=== PATIENT | male | born 1985 | race Caucasian/White ===

== ENCOUNTER 2016-12-13 09:31 | Day surgery (SDC) | payer BC ==
[~2016-12-13] VITALS: Ht 185.4 cm; Wt 125.4 kg
[2016-12-13] MEDS ORDERED: RANI150T9 PO (10:08)
[2016-12-13 10:13] VITALS: Ht 185.4 cm; Wt 125.4 kg
[2016-12-13] MEDS ORDERED: LIDOCAINE 2% (SDV) 5 ML INJ ONE (11:01)
[2016-12-13] MEDS ORDERED: PROPOFOL 60 ML ONE (11:01)
[2016-12-13 11:06] VITALS: BP 138/64; PULSE 61; RESP 17
[2016-12-13] MEDS ORDERED: PROPOFOL 20 ML ONE (11:14)
[2016-12-13 12:07] VITALS: BP 114/75; PULSE 67; RESP 20
--- NOTE | 2016-12-13 14:01 | GILP ---
DATE OF PROCEDURE: 12/13/2016 NAME OF PROCEDURES: 1. Esophagogastroduodenoscopy and biopsy. 2. Colonoscopy and biopsy. SURGEON: Jewell Treadwell MD PREOPERATIVE DIAGNOSES: 1. Abdominal pain. 2. Change in the bowel habit. 3. Rectal bleeding. 4. History of mucus in the stool. POSTOPERATIVE DIAGNOSES: 1. Gastritis with erosions. 2. Gastric nodules and biopsies were taken for histopathology. 3. Colonoscopy all the way to the cecum and into the terminal ileum. 4. Normal terminal ileum. 5. Internal hemorrhoids. 6. Random biopsies were taken to rule out microscopic colitis. INDICATION FOR THE PROCEDURE: Mr. Lea Gayle is a 31-year-old male patient who had upper abdo carlie pain, not responding to therapy. The patient also noticed a change in the bowel habit associa carmen with mucus in the stool. He also had a history of rectal bleeding. So the patient was schedule d for endoscopy and colonoscopy for further evaluation. The procedures and possible complications were well explained to the patient. The patient understoo d and consented to the procedures. DESCRIPTION OF PROCEDURE: Under the influence of anesthesia, the gastroscope was carefully introduc ed into the esophagus and under direct vision, it was advanced to the stomach and through the pyloru s into the duodenal bulb and descending duodenum. FINDINGS: ESOPHAGUS: Mucosa was normal. STOMACH: The patient had gastritis with erosions. The patient also had some gastric nodules near t he cardia of the stomach and biopsies were taken for histopathology. DUODENUM: Normal. The colonoscope was carefully introduced in the rectum and under direct vision, it was advanced all the way to the cecum. FINDINGS: The patient had internal hemorrhoids. No colitis or neoplasm was identified. The scope was also advanced into the terminal ileum. The terminal ileum was normal. Random biopsies were hanna en to rule out microscopic colitis. He tolerated the procedures very well and there was no complication from the procedures. At the end of the procedures, he was awake with stable vital signs and he was discharged home to the care of h is family. IMPRESSION: Please see postoperative diagnoses. PLAN: 1. Nexium 40 mg p.o. q.a.m. 2. Continue Zantac 300 mg p.o. at bedtime. 3. Await histopathology reports. Dictated By: JEWELL SHERWOOD/BENEDICTO Conf#: [id number] DID#: [id number] CC: JEWELL TREADWELL MD;*[facility]*
== END 2016-12-13 12:15 | disposition home or self-care (01) ==
LOC: GIL 09:31
PROVIDERS: ATTEND Internal Medicine Gastroenterology
DX: R19.4 Change in bowel habit (principal); K29.50 Unspecified chronic gastritis without bleeding; K64.8 Other hemorrhoids; E66.01 Morbid (severe) obesity due to excess calories; Z68.36 Body mass index [BMI] 36.0-36.9, adult

== ENCOUNTER 2018-01-15 09:39 | Emergency (ER) | END 2018-01-15 12:30 | disposition home or self-care (01) ==

== ENCOUNTER → 2018-11-28 | Outpatient (CLI) | payer BC ==
[~2018-11-28] MED LIST: ELEC100080 PO; IBUP-1542 PO; MECL12.574 PO; ONDA4TAB14 PO; RANI150T35 PO
== END | disposition home or self-care (01) ==
LOC: RAD 11:27
PROVIDERS: ATTEND Internal Medicine
DX: Z01.818 Encounter for other preprocedural examination (principal)
CPT/HCPCS: 71046